=== PATIENT | female | born 1945 | race Caucasian/White ===

== ENCOUNTER → 2017-02-20 | Outpatient (CLI) | payer MEDICARE, OTHER | END | disposition home or self-care (01) | LOC: XRAY 14:39 | DX: M17.0 Bilateral primary osteoarthritis of knee (principal) | CPT/HCPCS: 73560; 73562 ==

== ENCOUNTER 2017-05-08 14:29 | Outpatient (CLI) | payer MEDICARE, OTHER | END 2017-05-08 23:59 | disposition home or self-care (01) | LOC: XRAY 14:29 | PROVIDERS: ATTEND Internal Medicine | DX: I70.0 Atherosclerosis of aorta (principal); R06.00 Dyspnea, unspecified | CPT/HCPCS: 71020 ==

== ENCOUNTER 2018-10-20 11:44 | Outpatient (CLI) | payer MEDICARE, OTHER ==
[~2018-10-20 11:44] MED LIST: ACET-2605 PO; ACET-69 PO; ACET-73 PO; ALLO300T2 PO; ASCO-382 PO; CHOL20004 PO; FOLI1TAB16 PO; GLUC15006 PO; IRBE300T19 PO; LORA0.5T PO; OMEG1CAP PO; PHEN37.511 PO; PRAV40TA3 PO; PROP80TA4 PO; PYRI100T6 PO; TERI2.4P SQ
== END 2018-10-20 23:59 | disposition home or self-care (01) ==
LOC: XRAY 11:44
DX: I70.0 Atherosclerosis of aorta (principal); M32.9 Systemic lupus erythematosus, unspecified; I10 Essential (primary) hypertension
CPT/HCPCS: 71046